=== PATIENT | male | born 1980 | race Caucasian/White ===

== ENCOUNTER 2021-09-08 18:46 | Emergency (ER) | payer OTHER, MEDICAID ==
[2021-09-08 18:52] VITALS: BP 152/82
--- NOTE | 2021-09-08 19:36 | ED Physician Documentation ---
History of Present Illness - Stated complaint Stated Complaint: LT KNEE PX/INJ - Chief complaint Chief Complaint: Ext Problem - History obtained from History obtained from: Patient - History of Present Illness Timing: How many days ago (3) Pain level now: 8 Improved by: no ameliorating factors Worsened by: palpation of region of left tibial tuberosity - Additonal information Additional information: c/o atraumatic LLE pain, swelling. 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 No injury, although he notes a sudden onset of pain at left anterior knee in region of tibial tuberosity while working on his knees as he moved forward and thus he suspects there might have been some object or debris that got under his left knee as he was bearing weight on the knees. Denies fever. The pain is not worse with movement or weight-bearing, but it is exacerbated with palpation of left tibial tuberosity. Review of Systems Constitutional: denies: Fever, Chills, Sweats Cardiac: denies: Chest pain / pressure Respiratory: denies: Dyspnea Musculoskeletal: reports: Extremity pain, Extremity swelling. denies: Pain with weight bearing Neurologic: denies: Focal weakness, Numbness PD PAST MEDICAL HISTORY - Past Medical History Past Medical History: No - Past Surgical History Past Surgical History: Yes General: Appendectomy - Present Medications Home Medications: Ambulatory Orders Medication Instructions Recorded Confirmed Doxycycline Monohydrate 100 mg PO BID #14 cap 09/08/21 - Allergies Allergies/Adverse Reactions: Allergies Allergy/AdvReac Type Severity Reaction Status Date / Time No Known Drug Allergies Allergy Verified 09/08/21 18:52 PD ED PE NORMAL - Vitals Vital signs reviewed: Yes - General General: Alert and oriented X 3, No acute distress, Well developed/nourished PD ED PE EXPANDED - Extremities Extremities: Pedal Pulses Present, Other (FROM left knee without exacerbation of discomfort; left knee is nontender but mild TTP left tibial tuberosity) WANDER LE visual: 1 - swelling (uniform, circumferential swelling of LLE at left knee and distally with poorly marginated erythema, mild increased warmth vs RLE.) Results - Vitals Vitals: Vital Signs - 24 hr 09/08/21 09/08/21 18:50 22:23 Temperature 36 C L Heart Rate 90 Respiratory 16 18 Rate Blood Pressure 152/82 H O2 Saturation 100 Oxygen O2 Source Room air - Rads (name of study) LLE US Radiology: Prelim report reviewed, See rad report PD MEDICAL DECISION MAKING - ED course Complexity details: reviewed results, re-evaluated patient, considered differential, d/w patient ED course: No evidence of DVT on ultrasound; incidental note of left knee effusion. There is soft tissue edema "noted at the patient indicated area of concern" (per radiology report). Also noted are "mildly prominent left inguinal lymph nodes". He has full ROM of the left knee without worsening of pain and able to fully- weight bear. septic arthritis seems unlikely given the nonfocal findings on physical exam as well as the excellent ROM. 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 results d/w patient, follow up and return precautions discussed Departure - Departure Disposition: 01 Home, Self Care Clinical Impression: Cellulitis Qualifiers: Site of cellulitis: extremity Site of cellulitis of extremity: lower extremity Laterality: left Qualified Code(s): L03.116 - Cellulitis of left lower limb Condition: Good Instructions: ED Infec Skin Cellulitis Follow-Up: Oscar Mello MD [Provider Admit Priv/Credential] - Prescriptions: Doxycycline Monohydrate 100 mg PO BID #14 cap Comments: Follow up with your primary care provider in 4-5 days for reevaluation. If you do not have a primary care provider, you can try to arrange an appointment using the physician/practice information provided within these discharge instructions. The ultrasound does not show a blood clot; there are some enlarged lymph nodes in the left groin, which would increase the suspicion that your symptoms are due to an infection. A prescription for an antibiotic has been electronically submitted to [facility] in [place]. Forms: Activity restrictions Discharge Date/Time: 09/08/21 22:24
--- NOTE | 2021-09-08 21:20 | Ultrasound Report ---
PROCEDURE: Duplex Ext Veins Left INDICATIONS: atraumatic LLE swelling, pain, erythema TECHNIQUE: Real-time imaging, as well as color and pulse Doppler interrogation, were performed of the lower extr emity deep veins from the inguinal ligament to the popliteal fossa. COMPARISON: None. FINDINGS: The deep veins are normally compressible, and free of intraluminal thrombus. Color and pu lse Doppler demonstrate normal phasic intraluminal flow. There is normal augmentation response to di stal compression maneuver. Soft tissue edema is noted at the patient indicated area of concern. A left knee effusion is incident ally noted. Mildly prominent left inguinal lymph nodes are seen measuring up to 8 mm in short axis di ameter, which are nonspecific. IMPRESSION: No sonographic evidence of deep venous thrombosis in the left lower extremity. Reviewed by: Cj Monsalve MD on 09/08/2021 9:18 PM PST Approved by: Cj Monsalve MD on 09/08/2021 9:18 PM PST Station ID: [id number]
[2021-09-08] MEDS ORDERED: DOXYCYCLINE 100 MG TABLET PO STA (22:08)
[2021-09-08] MEDS ORDERED: IBUPROFEN 600 MG TABLET PO STA (22:08)
== END 2021-09-08 22:24 | disposition home or self-care (01) ==
LOC: ED 18:46
DX: L03.116 Cellulitis of left lower limb (principal)
CPT/HCPCS: 93971; 99283; 99284; A9270; 1040M